=== PATIENT | male | born 1965 | race Caucasian/White ===

== ENCOUNTER 2016-12-23 14:10 | Emergency (ER) | payer BC ==
[~2016-12-23] VITALS: Ht 185.4 cm; Wt 102.3 kg
[~2016-12-23 14:10] MED LIST: CIPRO500 MG PO; LORTAB 5-325 M1 EACH PO; MOTRIN600 MG PO; MOTRIN800 MG PO; NOHOMEMEDS
[2016-12-23] MEDS ORDERED: FLEXERIL10 MG PO (17:47)
[2016-12-23 17:55] VITALS: BP 164/106
== END 2016-12-23 18:05 | disposition home or self-care (01) ==
LOC: EME 14:10
DX: S39.012A Strain of muscle, fascia and tendon of lower back, initial encounter (principal); X50.0XXA Overexertion from strenuous movement or load, initial encounter; Y93.F2 Activity, caregiving, lifting
CPT/HCPCS: 99281; 99283; J1885